=== PATIENT | female | born 1960 | race Hispanic/Latino ===

== ENCOUNTER 2023-02-10 22:25 | Emergency (ER) | payer OTHER ==
[~2023-02-10] VITALS: Ht 152.4 cm; Wt 73.0 kg
[2023-02-10 22:28] VITALS: BP 152/65
== END 2023-02-11 00:45 | disposition left against medical advice (07) ==
LOC: EDH 22:25
DX: R10.9 Unspecified abdominal pain (principal); Z53.21 Procedure and treatment not carried out due to patient leaving prior to being seen by health care provider
CPT/HCPCS: 99281